=== PATIENT | female | born 1975 | race African-American/Black ===

== ENCOUNTER 2017-07-26 07:00 | Inpatient (IN) | payer OTHER ==
[~2017-07-26] VITALS: Ht 154.9 cm; Wt 82.7 kg
[~2017-07-26 07:00] MED LIST: BENADRYL25 MG PO; BISAC-EVAC10 M1 PR; CALCIUM CARBON500 M2 PO; DIAZEPAM5 M1; DIHYDROCODEIN-1 EACH; DOCUSATE SODIU100 M3 PO; LYRICA150 M1 PO; MILK OF MA400 MG/52 PO; ONE DAILY MULT1 EAC2 PO; OXYCODONE HCL5 M1 PO; PERCOCET 5-3251 EACH PO; SYMBICORT 16010.2 GM; TYLENOL325 M1 PO; VALIUM5 M2 PO; VENTOLIN HFA18 GM INH; VITAMIN D31000 UNI2 PO
--- NOTE | 2017-07-27 15:47 | Operative Report ---
Operative/Inv Procedure Report Surgery Date: 07/27/17 Name of Procedure: Lumbosacral laminectomies L4 L5 S1. Interdiscal cage and autologous bone graft fusion L4 5. Pedicle screw fusion L4 L5 S1 bilaterally. Lateral intertransverse process fusion L4 5 S1. Neuro lysis right L4 nerve. Use of fluoroscopy. Pre-Operative Diagnosis: Spinal stenosis anterolisthesis grade 1 L4 5 degenerative disc disease L4 5. Severe foraminal stenosis L4 5 L5-S1. Lumbarization of S1. Post-Operative Diagnosis: Same Estimated Blood Loss: 75 Surgeon/Header Up: Jose Alberto KNIGHT,Bong Gonsalez M.D. Anesthesia: general endotracheal tube Monitors: Neuro Operative/Procedure Note Note: After adequate general anesthesia was achieved the patient's placed in the prone position with all bony prominences padded. The back at the lumbosacral junction and left posterior iliac crest were sterilely prepped and draped. An incision was made over the left posterior iliac crest a subperiosteal dissection was carried lateral to the crest and the Nida retractor was placed. The osteotomes were used to remove a corticocancellous plate of bone from the pelvis and the curettes were used to collect cancellus bone. The wound was irrigated packed with Gelfoam and closed in layers with double suture with torito in the skin. The midline incision was created between the lumbar sacral junction. Over the dorsal elements laterally with electrocautery. Deep retractors were placed. Metallic object was placed and fluoroscopy was used to identify surgical level. There was severe enlargement of the L4 5 facets. For the sake of accurate nomenclature the lowest functioning disc space will be called L5-S1 and the lamina bilaterally L4 5 there was significant anatomic an anomaly suggesting lumbarization of S1 however. Laminectomies were performed bilaterally at L4-L5 and S1. Pedicles were identified. Tapped and pedicle screws were placed at L4 bilaterally as well as L5 and S1 bilaterally. The discectomies was performed on the right side which was the symptomatic side at L4 5 there is severe foraminal stenosis of the exiting nerve root and a neuro lysis was performed at that level name neck nerve right L4. The nerve was markedly erythematous. The endplates at the L4 5 level prepared for placement of the interdiscal cage using the instrumentation. A 9 mm cage was selected using the trials. The cage was packed with autologous bone graft and tamped into position under fluoroscopic observation. After cage placement the facets were decorticated and the rods were placed in the screws and compressed and locked in position. During harvesting of the bone graft slight osteoporosis was identified. The wound was copiously irrigated Gelfoam was laid over the laminotomy sites bone graft was packed laterally over the intertransverse process region which was decorticated with the high-speed bur from L4 to S1 bilaterally. Was also placed beneath rods over the facet joints at L4 5 and L5-S1 bilaterally. A closure the lumbodorsal fascia was performed with absorbable suture as well as the subcutaneous tissue. Skin was closed with torito. Sterile dressings were applied. During placement of the screws neural monitoring was used all screws were checked as normal.
--- NOTE | 2017-07-27 16:09 | RADIOLOGY REPORT ---
EXAMINATION: XR LUMBOSACRAL SPINE CLINICAL INFORMATION: L4-S1 fusion. COMPARISON: None. TECHNIQUE: 4 intraoperative views of the lumbar spine were obtained. FINDINGS: The images demonstrate sequelae of posterior instrumented fusions at L4, L5 and S1. There are paired pedicular screws in these vertebrae joined by vertical rods. An intervertebral disc spacer is seen at L4-L5. There is a mild levoscoliosis in the lumbar spine. Fluoroscopy time: 0.4 minutes. IMPRESSION: 1. Intraoperative images demonstrating sequelae of L4-S1 posterior instrumented fusions.
[2017-07-27 16:50] LABS: ABSOLUTE BASOPHIL COUNT 0 /CUMM (0.0-0.2); ABSOLUTE EOSINOPHIL COUNT 0 /CUMM (0.0-0.7); ABSOLUTE GRANULOCYTE CT 10.7 /CUMM (1.4-6.5); ABSOLUTE LYMPH COUNT 1.2 /CUMM (1.2-3.4); ABSOLUTE MONOCYTE COUNT 0.2 /CUMM (0.10-0.60); BASOPHIL % 0.2 % (0.0-2.0); EOSINOPHIL % 0.4 % (0-5); HEMATOCRIT 32.4 % (37-47); MEAN CORPUSCULAR HGB 33.8 PG (27.0-31.0); MEAN CORPUSCULAR HGB CONC 34.4 G/DL (33.0-37.0); MEAN CORPUSCULAR VOLUME 98.1 FL (81.0-99.0); MEAN PLATELET VOLUME 6.5 FL (7.4-10.4); PLATELET COUNT 278 /CUMM (130-400); RBC DISTRIBUTION WIDTH 13.3 % (11.5-14.5); WHITE BLOOD CELL COUNT 12.2 /CUMM (4.8-10.8)
--- NOTE | 2017-07-27 16:57 | Patient Discharge Instructions ---
Acute Coronary Syndrome Inclusion Criteria At DC or during hospital stay patient has or had the following: ACS DIAGNOSIS No Discharge Core Measures Meds if any: Prescribed or Continued at Discharge Meds if any: NOT Prescribed or Continued at Discharge Congestive Heart Failure Inclusion Criteria At DC or during hospital stay patient has or had the following: CHF DIAGNOSIS No Discharge Core Measures Meds if any: Prescribed or Continued at Discharge Meds if any: NOT Prescribed or Continued at Discharge Cerebrovascular accident Inclusion Criteria At DC or during hospital stay patient has or had the following: CVA/TIA Diagnosis No Discharge Core Measures Meds if any: Prescribed or Continued at Discharge Meds if any: NOT Prescribed or Continued at Discharge Venous thromboembolism Inclusion Criteria VTE Diagnosis No VTE Type NONE VTE Confirmed by (Test) NONE Discharge Core Measures - Per Current guidelines, there needs to be overlap - treatment for the first 5 days of Warfarin therapy. - If discharged on Warfarin prior to 5 days of - overlap therapy, the patient will need to be - assessed for post discharge needs including - *Post discharge parental anticoagulation - *Warfarin and/or parental anticoagulation education - *Follow up date to check INR post discharge At least 5 days overlap therapy as Inpatient No Meds if any: Prescribed or Continued at Discharge Note: Overlap Therapy is Warfarin and Anticoagulant Meds if any: NOT Prescribed or Continued at Discharge
[2017-07-27] MEDS ORDERED: MILK OF MA400 MG/52 PO (17:00)
[2017-07-27] MEDS ORDERED: COLACE100 M1 PO (17:00)
[2017-07-27] MEDS ORDERED: DULCOLAX10 M1 RC (17:00)
[2017-07-27] MEDS ORDERED: PERCOCET 5-3251 EACH PO (17:01)
[2017-07-27 17:24] LABS: GRANULOCYTE % 87.7 % (42.2-75.2)
[2017-07-27 19:17] VITALS: BP 150/84
[2017-07-27 21:52] VITALS: BP 132/82
[2017-07-28 06:20] VITALS: BP 146/86
[2017-07-28 08:16] LABS: ABSOLUTE BASOPHIL COUNT 0 /CUMM (0.0-0.2); ABSOLUTE EOSINOPHIL COUNT 0 /CUMM (0.0-0.7); BASOPHIL % 0.1 % (0.0-2.0); EOSINOPHIL % 0 % (0-5); GRANULOCYTE % 81.1 % (42.2-75.2); HEMATOCRIT 29.4 % (37-47); MEAN CORPUSCULAR HGB 32.8 PG (27.0-31.0); MEAN CORPUSCULAR HGB CONC 34.2 G/DL (33.0-37.0); MEAN CORPUSCULAR VOLUME 95.9 FL (81.0-99.0); PLATELET COUNT 322 /CUMM (130-400); RBC DISTRIBUTION WIDTH 12.9 % (11.5-14.5); RED BLOOD CELL CT 3.07 /CUMM (4.20-5.40)
--- NOTE | 2017-07-28 08:38 | PN- Neurosurgical ---
See Addendum Subjective Subjective: Patient reports postop pain which is unrelieved with percocet and morphine. She reports painless numbness from her right knee down to her foot. She reports voiding. She denies n/v, fever, chills, chest pain or difficulty breathing. Objective Vital Signs and I&Os Vital Signs Date Time Temp Pulse Resp B/P B/P Pulse O2 O2 Flow FiO2 Mean Ox Delivery Rate 07/28 619 98.5 91 20 146/86 100 07/27 2152 98.1 73 19 132/82 97 Room Air 07/27 1917 97.9 87 18 150/84 96 Room Air Intake & Output 07/28 1600 07/28 0800 07/28 0000 07/27 1600 07/27 0800 07/27 0000 Intake Total 1220 760 Output Total 1550 900 Balance -330 -140 Intake, IV 740 400 Intake, Oral 480 360 Number 0 Bowel Movements Output, 0 Drainage Output, Other 75 Output, Urine 1550 825 Patient 182 lb Weight Weight Bed scale Measurement Method Physical Exam: Gen: Resting uncomfortably secondary to pain awake and alert in NAD Cardiac: S1S2 noted RRR Lungs: Good air entry, anterior breath sounds clear Ext: Alps/teds in place, no edema or calf tenderness, moves all extremities, decreased motor an sensory in RLE Back: Dry dressing c/d/i, moderately tender to palpation Current Medications: Current Medications Sig/Rabia Start time Last Medication Dose Route Stop Time Status Admin Acetaminophen 650 MG Q4P PRN 07/27 1700 AC PO Acetaminophen 1,000 MG .STK-MED ONE 07/27 1023 DC IV 07/27 1024 Albuterol Sulfate 2 PUF Q4 PRN 07/27 1715 AC INH Albuterol Sulfate 2 PUF Q4-6 PRN PRN 07/27 1645 CAN INH Bisacodyl 10 MG DAILY NEEDED PRN 07/27 1700 AC NJ Budesonide/ 1 PUF BID PRN 07/27 1645 AC Formoterol Fumarate INH Calcium 600 MG BID 07/27 2200 AC 07/27 PO 2156 Cefazolin Sodium 1,000 MG IQ8 07/28 0000 AC 07/28 IV 07/28 1601 0010 Cefazolin Sodium 2,000 MG ONCE 07/27 0000 DC IV 07/27 2359 Cefazolin Sodium 2,000 MG ONCE 07/27 0000 DC IV 07/27 2359 Cholecalciferol 1,000 IU DAILY 07/28 1000 AC PO Diazepam 5 MG TID PRN 07/28 0826 UNVr PO Diazepam 5 MG AT BEDTIME NEED.. 07/27 2200 DC 07/27 PO 2234 Diphenhydramine HCl 25 MG Q4P PRN 07/27 1645 AC 07/28 PO 0542 Docusate Sodium 100 MG TID 07/27 2200 AC 07/27 PO 2156 Fentanyl Citrate 250 MCG .STK-MED ONE 07/27 1022 DC IM 07/27 1023 Hydromorphone HCl 1 MG Q4P PRN 07/28 0830 UNVr IV Hydromorphone HCl 2 MG Q4P PRN 07/28 0830 UNVr PO Hydromorphone HCl 4 MG Q4-6 PRN PRN 07/28 0830 UNVr PO Hydromorphone HCl 2 MG .STK-MED ONE 07/27 1612 DC IM 07/27 1613 Hydromorphone HCl 2 MG .STK-MED ONE 07/27 1022 DC IM 07/27 1023 Lactated Ringer's 1,000 ML Q10H 07/27 1700 AC 07/28 IV 0417 Lorazepam 0.5 MG Q4P PRN 07/27 1700 AC 07/28 PO 08/03 1659 0006 Magnesium Hydroxide 30 ML AT BEDTIME PRN 07/27 1700 AC PO Midazolam HCl 2 MG .STK-MED ONE 07/27 1525 DC IM 07/27 1526 Morphine Sulfate 1 MG Q3P PRN 07/27 1700 DC 07/28 IV 0542 Multivitamins 1 TAB DAILY 07/28 1000 AC Therapeutic PO Ondansetron HCl 4 MG Q6P PRN 07/27 1700 AC IV Oxycodone/ 1 TAB Q4P PRN 07/27 1700 DC Acetaminophen PO Oxycodone/ 2 TAB Q4P PRN 07/27 1700 DC 07/28 Acetaminophen PO 0006 Pregabalin 150 MG QAM 07/28 1000 AC PO Pregabalin 300 MG QPM 07/27 2200 AC 07/27 PO 2156 Remifentanil 4 MG .STK-MED ONE 07/27 1023 DC IV 07/27 1024 Trimethobenzamide HCl 200 MG Q6P PRN 07/27 1700 AC IM Results Last 48 Hours of Labs: Laboratory Tests 07/28 07/27 07/27 0620 1640 0915 Hematology CBC w Diff Pending NO MAN DIFF REQ WBC (4.8 - 10.8 /CUMM) Pending 12.2 H RBC (4.20 - 5.40 /CUMM) Pending 3.30 L Hgb (12.0 - 16.0 G/DL) Pending 11.2 L Hct (37 - 47 %) Pending 32.4 L MCV (81.0 - 99.0 FL) Pending 98.1 MCH (27.0 - 31.0 PG) Pending 33.8 H RDW (11.5 - 14.5 %) Pending 13.3 Plt Count (130 - 400 /CUMM) Pending 278 MPV (7.4 - 10.4 FL) Pending 6.5 L Gran % (42.2 - 75.2 %) 87.7 H Lymphocytes % (20.5 - 51.1 %) 9.8 L Monocytes % (1.7 - 9.3 %) 1.9 Eosinophils % (0 - 5 %) 0.4 Basophils % (0.0 - 2.0 %) 0.2 Absolute Granulocytes (1.4 - 6.5 /CUMM) 10.7 H Absolute Lymphocytes (1.2 - 3.4 /CUMM) 1.2 Absolute Monocytes (0.10 - 0.60 /CUMM) 0.2 Absolute Eosinophils (0.0 - 0.7 /CUMM) 0 Absolute Basophils (0.0 - 0.2 /CUMM) 0 PUBS MCHC (33.0 - 37.0 G/DL) Pending 34.4 Urines Urine Test NEGATIVE Assessment/Plan Assessment/Plan This is a 42 year-old female POD 1 s/p lum lami L4-L5, L5-S1 with fusion, bone graft and neurolysis of right L4 nerve root with uncontrolled pain Transition to IV/oral Dilaudid Cont ice prn Cont reg diet D/c IVF Cont postop abx - ancef x3 Home meds on board PT eval Keep soft collar in place Cont daily dry dressing changes to neck and bone graft incisions DVT - alps, ambulation F/u labs Will d/c Dr. Abrams Core Measures Venous Thromboembolism VTE Risk Factors Surgery No Mechanical VTE Prophylaxis d/t N/A MechProphylax Ordered No VTE Pharm Prophylaxis d/t Surgical Contraindication
--- NOTE | 2017-07-28 11:49 | Admission Core Measures ---
Acute Coronary Syndrome (CM) ACS Core Measures Acute Coronary Syndrome Diagnosis No Congestive Heart Failure (NEW) CHF Core Measures Congestive Heart Failure Diagnosis No Cerebrovascular Accident (NEW) CVA Core Measures CVA/TIA Diagnosis No Venous Thromboembolism VTE Core Sangeeta (View Protocol) VTE Risk Factors Surgery No Mechanical VTE Prophylaxis d/t N/A MechProphylax Ordered No VTE Pharm Prophylaxis d/t Surgical Contraindication Problem List As ranked by this Provider includes Assessment & Plan 1. Spinal stenosis at L4-L5 level HOME MEDS Home Med List Acetaminophen (Tylenol) 325 MG TABLET 2 TAB PO EVERY FOUR HOURS PRN PAIN ( Reported) Albuterol Sulfate (Ventolin Hfa) 90 MCG HFA.AER.AD 2 PUF INH Q4-6 PRN PRN ASTHMA (Reported) Bisacodyl (Dulcolax) 10 MG SUPP.RECT 1 SUP RC DAILY PRN CONSTIPATION Calcium Carbonate 500 MG CALCIUM (1,250 MG) TABLET 600 MG PO BID BONE HEALTH Cholecalciferol (Vitamin D3) 1,000 UNIT TABLET 1,000 IU PO DAILY BONE HEALTH Diazepam (Valium) 5 MG TABLET 1 TAB PO QPMP SLEEP (Reported) diphenhydrAMINE HCl (Benadryl) 25 MG CAP 25 MG PO Q4P PRN ITCHING Docusate Sodium (Colace) 100 MG CAPSULE 1 CAP PO BID PRN CONSTIPATION Magnesium Hydroxide (Milk Of Magnesia) 400 MG/5 ML ORAL.SUSP 5 ML PO Q8P PRN CONSTIPATION Multivitamin (One Daily Multivitamin) 1 EACH TABLET 1 TAB PO DAILY GENERAL HEALTH Pregabalin (Lyrica) 150 MG CAPSULE 1 CAP PO DAILY PAIN (Reported) Pregabalin (Lyrica) 150 MG CAPSULE 2 CAP PO QPM PAIN (Reported) Discontinued Medications Oxycodone HCl/Acetaminophen (Percocet 5-325 MG Tablet) 5 MG-325 MG TABLET 2 TAB PO Q4P PRN PAIN SCALE 4-6 (MODERATE)
--- NOTE | 2017-07-28 11:55 | Surgical Discharge Summary ---
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 MOTHER, , Age 85; Cause: Breast cancer in female. FATHER, , Age 60+; Cause: Myocardial infarction. Psychosocial History Where Do You Live? Home Who Do You Live With? Significant Other Review of Systems: Refer to H&P Hospital Course Course Attending Physician: Bong Abrams MD Primary Care Physician: Unknown Hospital Course: This is a 48 year-old male who presented on 07/27/17 for an elective lumbosacral laminectomies L4-L5 S1, interdiscal cage and autologous bone graft fusion L4-5, pedicle screw fusion L4-L5, L5-S1 bilaterally, lateral intertransverse process fusion L4-5, L5-S1 and neuro lysis right L4 nerve with use of fluoroscopy secondary to spinal stenosis anterolisthesis grade 1 L4-5, degenerative disc disease L4-5, severe foraminal stenosis L4-5 L5-S1 and lumbarization of S1. Please refer to Dr. Abrams op note for further details. Patient tolerated the procedure well and was transferred to surgical floor in stable condition. Diet was advanced and tolerated. She was seen an evaluated by PT. At the time of discharge, vital signs are stable, neurovascular status is intact and pain is well controlled with oral analgesics. Patient is medically stable for discharge at this time. Discharge order placed on 08/10/2017 per Dania ENNIS instructions Allergies: Coded Allergies: morphine (Mild, itching 07/15/17) Significant Procedures: On 07/27/17, lumbosacral laminectomies L4-L5 S1, interdiscal cage and autologous bone graft fusion L4-5, pedicle screw fusion L4-L5, L5-S1 bilaterally, lateral intertransverse process fusion L4-5, L5-S1 and neuro lysis right L4 nerve with use of fluoroscopy secondary to spinal stenosis anterolisthesis grade 1 L4-5, degenerative disc disease L4-5, severe foraminal stenosis L4-5 L5-S1 and lumbarization of S1. Disposition Summary Disposition Principal Diagnosis: Spinal stenosis anterolisthesis grade 1 L4-5, degenerative disc disease L4-5, severe foraminal stenosis L4-5 L5-S1 and lumbarization of S1. Additional Diagnosis: None Discharge Disposition: home or self care Discharge Instructions General Discharge Information Code Status: Full Code Patient's Diet: Regular Patient's Activity: Ambulate as tolerated with soft neck collar Follow-Up Instructions/Appts: F/u in 1-[address] Abrams or sooner with concerns Medications at Discharge Discharge Medications: Continue taking these medications: Albuterol Sulfate (Ventolin Hfa) 90 MCG HFA.AER.AD 2 Puff Inhale through mouth EVERY 4-6 HOURS NEEDED as needed for ASTHMA Comments: NOT GIVEN IN HOSPITAL Budesonide/Formoterol Fumarate (Symbicort 160-4.5 Mcg Inhaler) 160 MCG-4.5 MCG/ ACTUATION HFA.AER.AD Comments: NOT GIVEN IN HOSPITAL Calcium Carbonate (Calcium Carbonate) 500 MG CALCIUM (1,250 MG) TABLET 600 Milligram ORAL TWICE DAILY Qty = 60 Comments: Last Taken: 07/16/17 Time: 09:01 Cholecalciferol (Vitamin D3) 1,000 UNIT TABLET 1,000 International Unit ORAL DAILY Qty = 30 Comments: Last Taken: 07/16/17 Time: 09:01 Multivitamin (One Daily Multivitamin) 1 EACH TABLET 1 Tablet ORAL DAILY Qty = 30 Comments: Last Taken: 07/16/17 Time: 09:01 Acetaminophen (Tylenol) 325 MG TABLET 2 Tablet ORAL EVERY FOUR HOURS as needed for PAIN Diazepam (Valium) 5 MG TABLET 1 Tablet ORAL Every night as needed Pregabalin (Lyrica) 150 MG CAPSULE 1 Capsule ORAL DAILY Pregabalin (Lyrica) 150 MG CAPSULE 2 Capsule ORAL Every night diphenhydrAMINE HCl (Benadryl) 25 MG CAP 25 Milligram ORAL EVERY 4 HOURS NEEDED as needed for ITCHING Qty = 60 This prescription has been renewed Start taking the following new medications: Hydromorphone HCl (Hydromorphone HCl) 2 MG TABLET 2 Milligram ORAL EVERY 4-6 HOURS NEEDED as needed for PAIN SCALE 7-10 ( SEVERE) Qty = 90 No Refills Instructions: 1-2 TABS PO Q 4-6 HRS PRN PAIN Magnesium Hydroxide (Milk Of Magnesia) 400 MG/5 ML ORAL.SUSP 5 Milliliters ORAL EVERY 8 HOURS NEEDED as needed for CONSTIPATION Qty = 300 No Refills Bisacodyl (Dulcolax) 10 MG SUPP.RECT 1 Suppository RECTAL DAILY as needed for CONSTIPATION Qty = 10 No Refills Docusate Sodium (Colace) 100 MG CAPSULE 1 Capsule ORAL TWICE DAILY as needed for CONSTIPATION Qty = 60 No Refills Cephalexin (Keflex) 500 MG CAPSULE 1 Capsule ORAL THREE TIMES DAILY Qty = 21 No Refills
[2017-07-28] MEDS ORDERED: BENADRYL25 MG PO (12:45)
[2017-07-28] MEDS ORDERED: HYDROMORPHONE HC2 M1 PO (12:45)
[2017-07-28 14:54] VITALS: BP 140/84
--- NOTE | 2017-07-28 22:05 | RADIOLOGY REPORT ---
EXAMINATION: XR PORTABLE CHEST CLINICAL INFORMATION: Fever. COMPARISON: None TECHNIQUE: Portable frontal view of the chest was obtained. 9:36 PM FINDINGS: No acute abnormality. No pulmonary vascular congestion. No infiltrate or pleural effusion. The cardiomediastinal contours are unremarkable. There are surgical clips over the right mid lower chest. IMPRESSION: No acute abnormality of the chest.
[2017-07-28 22:32] VITALS: BP 128/76
[2017-07-28 22:40] LABS: ABSOLUTE BASOPHIL COUNT 0 /CUMM (0.0-0.2); ABSOLUTE EOSINOPHIL COUNT 0 /CUMM (0.0-0.7); ABSOLUTE GRANULOCYTE CT 10.1 /CUMM (1.4-6.5); ABSOLUTE LYMPH COUNT 1.7 /CUMM (1.2-3.4); ABSOLUTE MONOCYTE COUNT 1.4 /CUMM (0.10-0.60); BASOPHIL % 0.2 % (0.0-2.0); EOSINOPHIL % 0 % (0-5); GRANULOCYTE % 76.4 % (42.2-75.2); HEMATOCRIT 31.7 % (37-47); MEAN CORPUSCULAR HGB CONC 34.1 G/DL (33.0-37.0); MEAN CORPUSCULAR VOLUME 96.6 FL (81.0-99.0); MEAN PLATELET VOLUME 6.7 FL (7.4-10.4); PLATELET COUNT 341 /CUMM (130-400); RBC DISTRIBUTION WIDTH 12.7 % (11.5-14.5); RED BLOOD CELL CT 3.28 /CUMM (4.20-5.40); WHITE BLOOD CELL COUNT 13.2 /CUMM (4.8-10.8)
[2017-07-29 06:35] VITALS: BP 122/64
[2017-07-29 14:11] VITALS: BP 110/72
--- NOTE | 2017-07-29 16:45 | PN- Orthopedic ---
Subjective Subjective: Patient c/o "feeling hot." She states incisional pain is manageable. No leg or knee pain but residula numbness R>L leg continues. Patient with fever last night and again this am. No focal complaints. No calf pain, SOB, CP, N/V, or chills. + mild headache. Raciel. po. Tolerating Dilaudid for pain. Patient voiding without difficulty. No ambulation yet. Labs and cultures noted/reviewed. Review of Systems: Remarkable for the above complaints. Objective Vital Signs and I&Os Vital Signs Date Time Temp Pulse Resp B/P B/P Pulse O2 O2 Flow FiO2 Mean Ox Delivery Rate 07/29 1411 101.8 121 18 110/72 98 Room Air 07/29 1405 101.6 07/29 1022 101.6 07/29 0852 102.2 07/29 0832 102.2 07/29 0722 103.4 07/29 0705 103.4 07/29 0635 103.0 101 18 122/64 94 Room Air 07/29 0330 100.5 07/29 0128 100.7 90 07/28 2259 103.0 07/28 2232 103.1 113 19 128/76 94 Room Air 07/28 2200 103.0 07/28 2153 103.1 07/28 2045 103.1 Intake & Output 07/29 1600 07/29 0800 07/29 0000 07/28 1600 07/28 0800 07/28 0000 Intake Total 888 380 4463 1220 760 Output Total 901 263 7550 1550 900 Balance -310 320 -200 -330 -140 Intake, IV 10 100 400 740 400 Intake, Oral 480 720 900 480 360 Number 0 0 0 0 Bowel Movements Output, 0 Drainage Output, Other 75 Output, Urine 574 052 5676 1550 825 Patient 182 lb Weight Weight Bed scale Measurement Method Physical Exam General Appearance: well developed/nourished, alert, awake, mild distress Neck: normal inspection, Incisions healing. Dressing intact. Respiratory: normal breath sounds, no respiratory distress Cardiovascular: regular rate/rhythm Abdomen: soft, non-tender Back: Incision C/D/I. Dressings changed. Extremities: no edema, No calf tenderness or Homans. Neurologic/Psychiatric: + Mild weakness in right quad. +4/5. OTherwise neurovascularly intact and stable with no new or worsening gross motor or sensory loss in carol. lower or upper extremities. Skin: intact, normal color, warm and slightly diaphoretic Assessment/Plan Assessment/Plan Assessment: 1. S/p PLDF L4-S1 with Instr. 2. Fever of unknown origin, likely atelectasis Plan: Continue IV Tylenol/ convert to po Tylenol Continue Dilaudid Ambulate with PT Follow labs. IS 10/hr while awake Continue IV Ancef Will F/U in am Problem List: 1. Asthma 2. Hypertension 3. History of breast cancer 4. Spinal stenosis at L4-L5 level Core Measures Venous Thromboembolism VTE Risk Factors Surgery No Mechanical VTE Prophylaxis d/t N/A MechProphylax Ordered No VTE Pharm Prophylaxis d/t Surgical Contraindication Attending MD Review Statement Attending Statement Attending MD Statement: examined this patient, discuss w/resident/PA/NAIL EXPERT, agreed w/resident/PA/NAIL EXPERT
[2017-07-29 20:06] LABS: ABSOLUTE BASOPHIL COUNT 0 /CUMM (0.0-0.2); ABSOLUTE EOSINOPHIL COUNT 0 /CUMM (0.0-0.7); ABSOLUTE GRANULOCYTE CT 10.9 /CUMM (1.4-6.5); ABSOLUTE LYMPH COUNT 1.4 /CUMM (1.2-3.4); ABSOLUTE MONOCYTE COUNT 1.3 /CUMM (0.10-0.60); BASOPHIL % 0.3 % (0.0-2.0); EOSINOPHIL % 0.2 % (0-5); GRANULOCYTE % 80.1 % (42.2-75.2); HEMATOCRIT 30.2 % (37-47); MEAN CORPUSCULAR HGB 33.2 PG (27.0-31.0); MEAN CORPUSCULAR HGB CONC 34.1 G/DL (33.0-37.0); MEAN CORPUSCULAR VOLUME 97.4 FL (81.0-99.0); MEAN PLATELET VOLUME 7.3 FL (7.4-10.4); PLATELET COUNT 286 /CUMM (130-400); RBC DISTRIBUTION WIDTH 12.8 % (11.5-14.5); WHITE BLOOD CELL COUNT 13.7 /CUMM (4.8-10.8)
[2017-07-29 22:24] VITALS: BP 120/60
[2017-07-30 02:10] VITALS: BP 112/82
[2017-07-30 05:57] VITALS: BP 126/84
[2017-07-30 08:13] LABS: ABSOLUTE BASOPHIL COUNT 0 /CUMM (0.0-0.2); ABSOLUTE EOSINOPHIL COUNT 0.1 /CUMM (0.0-0.7); ABSOLUTE GRANULOCYTE CT 9.8 /CUMM (1.4-6.5); ABSOLUTE LYMPH COUNT 1.3 /CUMM (1.2-3.4); ABSOLUTE MONOCYTE COUNT 1.2 /CUMM (0.10-0.60); BASOPHIL % 0.1 % (0.0-2.0); EOSINOPHIL % 0.5 % (0-5); MEAN CORPUSCULAR HGB 33.1 PG (27.0-31.0); MEAN CORPUSCULAR HGB CONC 34.2 G/DL (33.0-37.0); MEAN CORPUSCULAR VOLUME 96.9 FL (81.0-99.0); MEAN PLATELET VOLUME 7.5 FL (7.4-10.4); PLATELET COUNT 248 /CUMM (130-400); RBC DISTRIBUTION WIDTH 12.8 % (11.5-14.5); RED BLOOD CELL CT 2.99 /CUMM (4.20-5.40); WHITE BLOOD CELL COUNT 12.4 /CUMM (4.8-10.8)
[2017-07-30] MEDS ORDERED: KEFLEX500 M1 PO (14:57)
--- NOTE | 2017-07-30 15:41 | PN- Orthopedic ---
Subjective Subjective: Patient c/o continued LBP and right leg numbness and slight weakness which was there preop. Fever reduced. No diaphoresis. no palpitations. Ambulated in hallway. + flatus. Voiding without difficulty. No CP/SOB/N/V. Raciel. po and pain meds. Review of Systems: Remarkable for the above complaints. Objective Vital Signs and I&Os Vital Signs Date Time Temp Pulse Resp B/P B/P Pulse O2 O2 Flow FiO2 Mean Ox Delivery Rate 07/30 06 104 07/30 0557 99.0 104 20 126/84 97 07/30 0210 98.6 96 20 112/82 93 07/30 0009 99.5 102 07/29 2230 107 07/29 2224 101.3 107 18 120/60 96 Room Air 07/290 99.5 07/29 2111 101.2 07/29 2111 101.3 Intake & Output 07/30 1600 07/30 0800 07/30 0000 07/29 1600 07/29 0800 07/29 0000 Intake Total 200 200 650 490 820 Output Total 300 1050 200 800 500 Balance -100 -850 450 -310 320 Intake, IV 50 10 100 Intake, Oral 200 200 600 480 720 Number 0 0 0 Bowel Movements Output, Urine 300 1050 200 800 500 Physical Exam General Appearance: well developed/nourished, alert, awake, moderate distress Neck: Incisions C/D/I. Respiratory: normal breath sounds, no respiratory distress Cardiovascular: regular rate/rhythm Abdomen: normal bowel sounds, soft, non-tender Back: Incision C/D/I. Dressing changed. Extremities: Neurovascularly stable with no new or worsening gross motor or sensory loss. + Right quad +4/5 strength. unchanged. Skin: intact, normal color, warm/dry Assessment/Plan Assessment/Plan Assessment: 1. s/p PLDF L4-S1 with Instr. 2. Fever resolving Plan: Continue IV Ancef Check labs in am Ambulate with PT Bowel regimen IS Possible D/C home in am tomorrow if stable Problem List: 1. Asthma 2. Hypertension 3. History of breast cancer 4. Spinal stenosis at L4-L5 level Core Measures Venous Thromboembolism VTE Risk Factors Surgery No Mechanical VTE Prophylaxis d/t N/A MechProphylax Ordered No VTE Pharm Prophylaxis d/t Surgical Contraindication Attending MD Review Statement Attending Statement Attending MD Statement: discuss w/resident/PA/PROFESSOR OF HISTORY, agreed w/resident/PA/PROFESSOR OF HISTORY
[2017-07-30 15:49] VITALS: BP 118/64
[2017-07-30 23:29] VITALS: BP 128/74
[2017-07-31 07:30] VITALS: BP 114/62
[2017-07-31 09:47] LABS: ABSOLUTE BASOPHIL COUNT 0 /CUMM (0.0-0.2); ABSOLUTE EOSINOPHIL COUNT 0.1 /CUMM (0.0-0.7); ABSOLUTE GRANULOCYTE CT 5.5 /CUMM (1.4-6.5); ABSOLUTE MONOCYTE COUNT 0.9 /CUMM (0.10-0.60); BASOPHIL % 0.4 % (0.0-2.0); EOSINOPHIL % 1.2 % (0-5); GRANULOCYTE % 73.1 % (42.2-75.2); HEMATOCRIT 25.6 % (37-47); MEAN CORPUSCULAR HGB 32.9 PG (27.0-31.0); MEAN PLATELET VOLUME 7.4 FL (7.4-10.4); PLATELET COUNT 294 /CUMM (130-400); RBC DISTRIBUTION WIDTH 12.9 % (11.5-14.5); RED BLOOD CELL CT 2.64 /CUMM (4.20-5.40); WHITE BLOOD CELL COUNT 7.5 /CUMM (4.8-10.8)
[2017-07-31 15:45] VITALS: BP 110/56
== END 2017-07-31 16:54 | DRG 455 ==
LOC: SDA 07-27 04:08 → ENRESERV 07-27 16:27 → ENTRNSPT 07-27 18:28 → EDTRNSPTSTS 07-27 18:41 → 2NB 07-27 18:45 → CMPTRNSPT 07-27 19:07 → 2NB 07-31 16:54
PROVIDERS: Orthopaedic Surgery Orthopaedic Surgery of the Spine; Physician Assistant Surgical
PROC: 0SG00AJ Fusion of Lumbar Vertebral Joint with Interbody Fusion Device, Posterior Approach, Anterior Column, Open Approach (ICD-10-PCS; principal; 2017-07-27)
PROC: 0SB20ZZ Excision of Lumbar Vertebral Disc, Open Approach (ICD-10-PCS; 2017-07-27)
PROC: 01NB0ZZ Release Lumbar Nerve, Open Approach (ICD-10-PCS; 2017-07-27)
PROC: 4A11X4G Monitoring of Peripheral Nervous Electrical Activity, Intraoperative, External Approach (ICD-10-PCS; 2017-07-27)
PROC: 0SG0071 Fusion of Lumbar Vertebral Joint with Autologous Tissue Substitute, Posterior Approach, Posterior Column, Open Approach (ICD-10-PCS; 2017-07-27)
PROC: 0SG3071 Fusion of Lumbosacral Joint with Autologous Tissue Substitute, Posterior Approach, Posterior Column, Open Approach (ICD-10-PCS; 2017-07-27)
PROC: 0QB30ZZ Excision of Left Pelvic Bone, Open Approach (ICD-10-PCS; 2017-07-27)
DX: M48.061 Spinal stenosis, lumbar region without neurogenic claudication (principal); I10 Essential (primary) hypertension; M19.90 Unspecified osteoarthritis, unspecified site; M48.07 Spinal stenosis, lumbosacral region; M51.37 Other intervertebral disc degeneration, lumbosacral region; J45.909 Unspecified asthma, uncomplicated; M81.0 Age-related osteoporosis without current pathological fracture; M51.16 Intervertebral disc disorders with radiculopathy, lumbar region
CPT/HCPCS: 2NBP; 36415; 71045; 72100; 81025; 87040; 87086; 88304; 97116-GO; 97161-GP; 97530-GO; C1713; J0131; J0690; J2270; J3490; J7120